=== PATIENT | female | born 1945 | race Caucasian/White ===

== ENCOUNTER → 2016-05-26 | Outpatient (CLI) | payer MEDICARE, OTHER ==
[~2016-05-26] MED LIST: ASPIRIN E.C. 8181 MG PO; CORAL CALCIUM185 MG PO; FLEXERIL 1010 MG/TAB PO; GLUCOSAMINE & C1 CA1 PO; HCTZ 25MG TAB25 MG PO; IMMUNE BOOSTER1 PDS PO; MACROBID 1100 MG/CAP PO; MULTIPLE VITAMI1 CAP PO; PERCOCET 325 MG1 TA2 PO; PREDNISONE20 MG PO; PROBIOTIC FORMU1 CAP PO; RITE AID KRILL500 MG PO; TENORMIN 2525 MG/TAB PO; VITAMIN C500 MG PO; [UNRECOGNIZED DRUG - OTHER] PO; [UNRECOGNIZED DRUG - OTHER] PO
== END ==
LOC: MC.RAD 08:38
DX: Z12.31 Encounter for screening mammogram for malignant neoplasm of breast (principal); Z80.3 Family history of malignant neoplasm of breast

== ENCOUNTER → 2016-06-22 | Outpatient (CLI) | payer MEDICARE, OTHER | LOC: COL.RAD 16:06 | DX: K43.9 Ventral hernia without obstruction or gangrene (principal) | CPT/HCPCS: Q9967 ==

== ENCOUNTER → 2017-06-04 | Outpatient (CLI) | payer MEDICARE, OTHER | LOC: COL.RAD 09:13 | DX: M43.16 Spondylolisthesis, lumbar region (principal); M48.061 Spinal stenosis, lumbar region without neurogenic claudication ==

== ENCOUNTER → 2017-06-19 | Outpatient (CLI) | payer MEDICARE, OTHER | LOC: MC.RAD 10:05 | DX: Z12.31 Encounter for screening mammogram for malignant neoplasm of breast (principal); R92.8 Other abnormal and inconclusive findings on diagnostic imaging of breast ==

== ENCOUNTER → 2017-06-27 | Outpatient (CLI) | payer MEDICARE, OTHER | LOC: MC.RAD 10:13 | DX: N63.10 Unspecified lump in the right breast, unspecified quadrant (principal) ==

== ENCOUNTER → 2017-07-03 | Outpatient (CLI) | payer MEDICARE, OTHER | LOC: MC.RAD 06:52 | DX: N63.10 Unspecified lump in the right breast, unspecified quadrant (principal); N64.89 Other specified disorders of breast ==

== ENCOUNTER → 2018-03-18 | Outpatient (CLI) | payer MEDICARE, OTHER ==
[~2018-03-18] MED LIST changes: +ALDACTAZIDE 251 TAB PO; +ARIMIDEX1 MG PO; +CALCIUM PO; +CARAFATE 1GM1 G PO; +METROGEL1% TOP; +NEURONTIN100 MG/CAP PO; +NORCO 325 MG-51 TAB PO; +NYSTATIN OR100 MU/ML PO; +OMEGA KRILL PO; +PROBIOTIC PO; +SUPPLEMENT PO; +TYLENOL 325MG325 MG PO; +TYLENOL 500MG500 MG PO; +ZANAFLEX 4MG TAB4 MG PO; +ZOCOR 40MG40 MG PO; +[UNRECOGNIZED DRUG - OTHER] PO
== END ==
LOC: COL.RAD 09:57
DX: N28.1 Cyst of kidney, acquired (principal); Z87.440 Personal history of urinary (tract) infections

== ENCOUNTER → 2018-06-20 | Outpatient (CLI) | payer MEDICARE, OTHER | LOC: MC.RAD 12:54 | DX: C50.411 Malignant neoplasm of upper-outer quadrant of right female breast (principal); C50.211 Malignant neoplasm of upper-inner quadrant of right female breast; I10 Essential (primary) hypertension; Z98.890 Other specified postprocedural states; Z92.3 Personal history of irradiation | CPT/HCPCS: G0279 ==

== ENCOUNTER → 2019-06-23 | Outpatient (CLI) | payer MEDICARE, OTHER | LOC: MC.RAD 10:22 | DX: Z12.31 Encounter for screening mammogram for malignant neoplasm of breast (principal) ==

== ENCOUNTER → 2020-06-23 | Outpatient (CLI) | payer MEDICARE, OTHER | LOC: MC.RAD 09:42 | DX: Z12.31 Encounter for screening mammogram for malignant neoplasm of breast (principal); C50.211 Malignant neoplasm of upper-inner quadrant of right female breast; Z98.890 Other specified postprocedural states ==

== ENCOUNTER 2021-06-11 17:01 | Emergency (ER) | payer MEDICARE, OTHER ==
[~2021-06-11] VITALS: Ht 152.4 cm; Wt 77.7 kg
[2021-06-11 17:19] VITALS: BP 159/71; TEMP 98
[2021-06-11] MEDS ORDERED: MYRBETR25MG PO (17:38)
[2021-06-11 18:50] VITALS: PULSE 88
== END 2021-06-11 18:50 | disposition home or self-care (01) ==
LOC: COL.ER 17:01
DX: S09.90XA Unspecified injury of head, initial encounter (principal); S00.83XA Contusion of other part of head, initial encounter; S00.31XA Abrasion of nose, initial encounter; S80.212A Abrasion, left knee, initial encounter; S80.211A Abrasion, right knee, initial encounter; M54.2 Cervicalgia; E66.9 Obesity, unspecified; Z68.33 Body mass index [BMI] 33.0-33.9, adult; W01.0XXA Fall on same level from slipping, tripping and stumbling without subsequent striking against object, initial encounter; Y92.481 Parking lot as the place of occurrence of the external cause

== ENCOUNTER → 2021-06-24 | Outpatient (CLI) | payer MEDICARE, OTHER ==
[~2021-06-24] MED LIST changes: +MYRBETR25MG PO
== END ==
LOC: MC.RAD 09:53
DX: Z12.31 Encounter for screening mammogram for malignant neoplasm of breast (principal); Z85.3 Personal history of malignant neoplasm of breast

== ENCOUNTER → 2023-08-02 | Outpatient (CLI) | payer MEDICARE, OTHER ==
[~2023-08-02] MED LIST changes: +GLUCOSAMINE/CHO1 CA1 PO; +MAGNESIUM GLYC100 MG PO; +PRELIEF PO; +PROTONIX 40MG T40 MG PO; +RESTASIS0.05% OP; +VITAMIN D31000 IU PO; +ZESTRIL 5MG5 MG PO; +[UNRECOGNIZED DRUG - OTHER] PO; +[UNRECOGNIZED DRUG - OTHER] PO; +[UNRECOGNIZED DRUG - OTHER] PO
== END ==
LOC: MC.RAD 09:34
DX: Z12.31 Encounter for screening mammogram for malignant neoplasm of breast (principal); C50.211 Malignant neoplasm of upper-inner quadrant of right female breast